=== PATIENT | female | born 1995 | race Caucasian/White ===

== ENCOUNTER 2019-06-16 15:17 | Emergency (ER) | payer OTHER, SELFPAY ==
[2019-06-16 15:27] VITALS: BP 122/83; PULSE 77; RESP 16; TEMP 36.7; O2SAT 100
--- NOTE | 2019-06-16 15:59 | ED.GENADULT ---
HPI - General Adult General Chief complaint: Upper Respiratory Infection Stated complaint: Abdominal Pain Time Seen by Provider: 06/16/19 16:00 Source: patient Mode of arrival: ambulatory Limitations: no limitations History of Present Illness HPI narrative: Isabella Kincaid is a 24-year-old female with no PE MH who comes to express care for complaints of upper respiratory infection and exposure to flu/. She states she is gotten progressively worse over the last 2 to 3 days Related Data Allergies Allergy/AdvReac Type Severity Reaction Status Date / Time sulfa Allergy Unknown hives Uncoded 10/02/16 13:06 Review of Systems Review of Systems: Narrative: CONSTITUTIONAL: Has fever, chills, sweats. EYES: Denies visual changes, redness, discharge. ENT: Has rhinorrhea, congestion, sore throat, no otalgia. CARDIOVASCULAR: Denies chest pain, palpitations, edema. RESPIRATORY: Denies dyspnea, wheezing, cough GASTROINTESTINAL: Denies abdominal pain, nausea, vomiting, diarrhea. GENITOURINARY: Denies dysuria, hematuria, abnormal discharge SKIN: Denies rash or itching. MUSCULOSKELETAL: Denies acute back pain, joint pain, or myalgia. NEUROLOGIC: Denies numbness, or focal weakness. PSYCHIATRIC: Denies anxiety or depression. [facility] Family History Family History (Updated 06/16/19 @ 16:02 by Delia Walters CNP) Other No active medical problems Social History Social History (Updated 06/16/19 @ 16:02 by Delia Walters CNP) Smoking status: Never smoker Living arrangements: with family Occupation/Education: occupation Comments At time of signature, I agree with nursing past medical, surgical, social and family history. There is no relevant family history pertinent to the presenting complaint. Exam Narrative: Exam Narrative: GENERAL: This is a well-nourished, well-developed patient, in moderate distress. HEAD: normocephalic, atraumatic. EYES:Sclera clear/white. Vision is grossly intact. EARS: External ears normal, auditory canals clear and without drainage, TMs normal without perforation. Hearing grossly intact. NOSE: External nose normal with no obvious nasal discharge, nares with redness, has rhinorrhea. THROAT: Mucous membranes moist, posterior pharynx erythema NECK: Neck supple, non-tender CARDIOVASCULAR: Regular rate and rhythm without murmurs, gallops, or rubs. RESPIRATORY: Diminished to auscultation. Breath sounds equal bilaterally. No wheezes, rales, or rhonchi. GASTROINTESTINAL: Abdomen soft, non-tender, nondistended. SKIN: warm, intact with no suspicious lesions or rash, good texture and turgor. NEURO: awake, alert, and oriented to person, place and time. There were no obvious focal neurologic abnormalities. Steady gait EXTREMITIES: Normal range of motion. No edema. . BACK: Nontender without deformity or crepitance.. Course Course Emergency Course: Flu swab negative has exposure through family Treated with Tamiflu as well has Delsym and steroids Discussed hydration Vital Signs Vital signs: Vital Signs Temperature 98.1 F 06/16/19 15:27 Pulse Rate 77 06/16/19 15:27 Respiratory Rate 16 06/16/19 15:27 Blood Pressure 122/83 06/16/19 15:27 Pulse Oximetry 100 06/16/19 15:27 Temperature 98.1 F 06/16/19 15:27 Pulse Rate 77 06/16/19 15:27 Respiratory Rate 16 06/16/19 15:27 Blood Pressure 122/83 06/16/19 15:27 Pulse Oximetry 100 06/16/19 15:27 Medical Decision Making Differential Diagnosis Differential Diagnosis: Flu versus upper respiratory infection versus cold versus bronchitis Vital Signs Vital Signs: Vital Signs Temperature 98.1 F 06/16/19 15:27 Pulse Rate 77 06/16/19 15:27 Respiratory Rate 16 06/16/19 15:27 Blood Pressure 122/83 06/16/19 15:27 Pulse Oximetry 100 06/16/19 15:27 Temperature 98.1 F 06/16/19 15:27 Pulse Rate 77 06/16/19 15:27 Respiratory Rate 16 06/16/19 15:27 Blood Pressure 122/83 06/16/19 15:27 Pulse Oximetry
== END 2019-06-16 16:10 | disposition home or self-care (01) ==
PROVIDERS: Emergency Provider Nurse Practitioner
DX: B34.9 Viral infection, unspecified (principal); J02.9 Acute pharyngitis, unspecified
CPT/HCPCS: 87804; 99213; G0463

== ENCOUNTER 2020-04-28 11:11 | Emergency (ER) | payer OTHER, SELFPAY ==
[2020-04-28 11:19] VITALS: BP 114/69; PULSE 79; RESP 18; TEMP 36.7; O2SAT 100
--- NOTE | 2020-04-28 11:44 | ED.HA ---
HPI - Headache General Chief Complaint: Headache Stated Complaint: migrane Time Seen by Provider: 04/28/20 11:31 Source: patient and RN notes reviewed Mode of arrival: ambulatory Limitations: no limitations History of Present Illness HPI Narrative: Patient presents today complaint of a 2-day history of frontal migraine. Patient does have history of migraine related to a previous TBI. It is causing her some dizziness and vertigo symptoms as well as some significant nausea and photophobia. She has an appointment set up with her PCP in 2 days, but had to miss work today and needed a work excuse. She has been taking meclizine without much relief. She has also been taking Tylenol, ibuprofen, and Excedrin. Currently rates her pain 4/10. Current symptoms are similar to previous migraines. This is not her worst headache ever. Denies any sick symptoms to include congestion, rhinorrhea, sore throat, cough. MD elicited complaint: migraine Related Data Home Medications Medication Instructions Recorded Confirmed acetaminophen-codeine 1 tablet PO DIRECTED 04/28/20 04/28/20 amoxicillin 500 mg PO TID 04/28/20 04/28/20 Allergies Allergy/AdvReac Type Severity Reaction Status Date / Time sulfa Allergy Unknown hives Uncoded 04/28/20 11:13 Review of Systems Review of Systems: Narrative: CONSTITUTIONAL: Denies body aches, fever, chills, or sweats. EYES: Denies visual changes, redness, or discharge.+ Photophobia ENT: Denies rhinorrhea, congestion, sore throat, or otalgia. CARDIOVASCULAR: Denies chest pain, palpitations, or edema. RESPIRATORY: Denies cough or dyspnea. GASTROINTESTINAL: Denies abdominal pain, vomiting, or diarrhea. + Nausea GENITOURINARY: Denies dysuria or hematuria. SKIN: Denies rash, itching, or wounds. MUSCULOSKELETAL: Denies back pain, joint pain, or myalgia. NEUROLOGIC: Denies numbness, tingling, or weakness. + Migraine, dizziness PSYCH: Denies depression or anxiety. [facility] Past Medical History Medical History (Updated 04/28/20 @ 11:48 by Christina Day, [employer], [place]) Migraine Traumatic brain injury Family History Family History (Updated 06/16/19 @ 16:02 by Delia Walters, [employer]) Other No active medical problems Social History Social History (Updated 06/16/19 @ 16:02 by Delia Walters CNP) Smoking status: Never smoker Comments At time of signature, I have reviewed and agree with nursing past medical, surgical, social and family history unless otherwise noted. Please see nursing chart for further information. There is no relevant family history pertinent to the presenting complaint Exam Narrative: Exam Narrative: GENERAL: Well-appearing, well-nourished, and in no acute distress. HEAD: Normocephalic, atraumatic. EYES: EOMI. PERRL. No redness or drainage. Conjunctivae normal. ENT: Mucous membranes pink and moist. NECK: Normal AROM. Supple. No lymphadenopathy. CHEST: No respiratory distress. Clear to auscultation. HEART: Regular rate and rhythm. No murmur appreciated. Normal peripheral pulses. EXTREMITIES: Normal range of motion. No edema. SKIN: Warm, dry, no rash. Capillary refill normal. Normal skin turgor. NEURO: No focal deficits. Alert and oriented x3. Gait steady. PSYCH: Normal affect. No signs of depression or anxiety. Course Vital Signs Vital signs: Vital Signs Temperature 98.0 F 04/28/20 11:19 Pulse Rate 79 04/28/20 11:19 Respiratory Rate 18 04/28/20 11:19 Blood Pressure 114/69 04/28/20 11:19 Pulse Oximetry 100 04/28/20 11:19 Temperature 98.0 F 04/28/20 11:19 Pulse Rate 79 04/28/20 11:19 Respiratory Rate 18 04/28/20 11:19 Blood Pressure 114/69 04/28/20 11:19 Pulse Oximetry 100 04/28/20 11:19 Reviewed MDM - Headache Differential Diagnosis Differential diagnosis: Likely migraine and headache Critical Care Time Critical Care Time Critical Care Time: No Discharge Plan Discharge Clinical Impression: Migraine Qualifiers:
== END 2020-04-28 11:51 | disposition home or self-care (01) ==
PROVIDERS: Emergency Provider Nurse Practitioner; PCP Nurse Practitioner Family
DX: G43.919 Migraine, unspecified, intractable, without status migrainosus (principal)
CPT/HCPCS: 99213; G0463

== ENCOUNTER 2021-03-22 16:55 | Emergency (ER) | payer SELFPAY ==
[2021-03-22 17:07] VITALS: BP 113/78; PULSE 76; RESP 18; TEMP 36.7; O2SAT 100
--- NOTE | 2021-03-22 17:55 | ED.EAR ---
HPI - Ear Problem General Chief complaint: Ear Stated complaint: Ear Pain Time Seen by Provider: 03/22/21 17:55 Source: patient, RN notes reviewed and old records reviewed Mode of arrival: ambulatory Limitations: no limitations History of Present Illness HPI Narrative: 25 year old female with complaints of right ear pain which has increased today after she blew her nose with pain now burning and stabbing in sensation. She reports that she started out having sinus symptoms on Thursday with some ear pressure, nasal congestion and drainage. She reports that she has used OTC ear pain drops with no improvement and took 2 days of left over Amoxicillin that she had at home and some Mucinex.Patient denies any fevers chills or sweats, denies any body aches. MD Complaint: ear pain Related Data Home Medications Medication Instructions Recorded Confirmed meclizine 03/22/21 Allergies Allergy/AdvReac Type Severity Reaction Status Date / Time codeine AdvReac Headache Verified 03/22/21 17:32 sulfa Allergy Unknown hives Uncoded 04/28/20 11:13 Review of Systems Review of Systems: CONSTITUTIONAL: Denies fever, chills, or sweats. EYES: Denies visual changes, redness, or discharge. ENT: Positive for rhinorrhea, congestion,no sore throat,right ear otalgia. CARDIOVASCULAR: Denies chest pain, palpitations, or edema. RESPIRATORY: Denies cough or dyspnea. GASTROINTESTINAL: Denies abdominal pain, nausea, vomiting, or diarrhea. GENITOURINARY: Denies dysuria or hematuria. SKIN: Denies rash or itching. MUSCULOSKELETAL: Denies back pain, joint pain, or myalgia. NEUROLOGIC: Denies headache, numbness, or weakness. PSYCHIATRIC: Denies anxiety or depression. All systems reviewed & are unremarkable except as noted in HPI and below PMFSH Past Medical History Medical History (Updated 03/25/21 @ 12:14 by Sakshi Trinidad NP) Bronchitis Migraine Traumatic brain injury UTI (urinary tract infection) Surgical History Surgical History (Updated 03/25/21 @ 11:12 by Sakshi Trinidad NP) No history of previous surgery Family History Family History Other No active medical problems Social History Social History (Updated 03/25/21 @ 12:15 by Sakshi Trinidad NP) Smoking status: Never smoker Alcohol intake: current Alcohol use details: rare social Substance use: never Living arrangements: with family Gender identity (if verbalized by the patient): Female Comments At time of signature, agree with nursing past medical, surgical, social and family history. There is no relevant family history pertinent to the presenting complaint Exam Narrative: GENERAL: Well-appearing, well-nourished, and in no acute distress. HEAD: Normocephalic, atraumatic. EYES: PERRLA and EOMI. ENT: Nares patent with clear rhinorrhea no epistaxis. Mucous membranes moist.Right TM red with adequate light reflex, no drainage, Left TM normal with good light reflex, throat pink with no lesions or exudates or tonsil swelling, post nasal drainage noted in back of throat. NECK: Supple. no lymphadenopathy CHEST: Clear to auscultation. No respiratory distress.SAO2 100% on room air, HEART: Regular rate and rhythm. No murmur heard. Normal peripheral pulses. ABDOMEN: Soft, nontender, nondistended, normal active bowel sounds. EXTREMITIES: Normal range of motion. No edema. SKIN: Warm, dry, no rash. NEURO: No focal deficits. Alert and oriented x3. Course Vital Signs Vital signs: Vital Signs Temperature 36.7 C 03/22/21 17:07 Pulse Rate 76 03/22/21 17:07 Respiratory Rate 18 03/22/21 17:07 Blood Pressure 113/78 03/22/21 17:07 Pulse Oximetry 100 03/22/21 17:07 Temperature 36.7 C 03/22/21 17:07 Pulse Rate 76 03/22/21 17:07 Respiratory Rate 18 03/22/21 17:07 Blood Pressure 113/78 03/22/21 17:07 Pulse Oximetry 100 03/22/21 17:07 Medical Decision Making Differential Diagnos
== END 2021-03-22 18:22 | disposition home or self-care (01) ==
PROVIDERS: Emergency Provider Registered Nurse; PCP Nurse Practitioner Family
DX: H65.01 Acute serous otitis media, right ear (principal)
CPT/HCPCS: 99213; G0463

== ENCOUNTER 2021-08-01 09:55 | Outpatient (CLI) | payer OTHER, SELFPAY ==
--- NOTE | ~2021-08-01 | US_ITS ---
EXAMINATION: US pelvic complete w TV DATE: 08/01/2021 10:39 INDICATION: Dysmenorrhea. TECHNIQUE: Multiple transabdominal and transvaginal sonographic images of the pelvis were obtained. COMPARISON: None. FINDINGS: TRANSABDOMINAL ULTRASOUND: The uterus measures 6.6 x 4.7 x 3.2 cm. There is physiologic free fluid in the pelvis. TRANSVAGINAL ULTRASOUND: The endometrial complex measures 12 mm in thickness. The right ovary measures 2.0 x 2.0 x 1.0 cm. The left ovary measures 2.8 x 2.5 x 2.4 cm. There is normal vascular flow in the ovaries. IMPRESSION: 1. Normal pelvis. Reviewed, dictated and finalized at location A. IMPRESSION: 1. Normal pelvis.
== END 2021-08-01 09:56 | disposition home or self-care (01) ==
LOC: ANHIMG 09:59
PROVIDERS: PCP Nurse Practitioner Family; Visit Provider Obstetrics & Gynecology
DX: N94.6 Dysmenorrhea, unspecified (principal)
CPT/HCPCS: 76830; 76856